=== PATIENT | female | born 1950 | race Caucasian/White ===

== ENCOUNTER 2018-07-24 08:04 | Emergency (ER) | payer OTHER ==
[~2018-07-24] VITALS: Ht 147.3 cm; Wt 64.4 kg
[2018-07-24 08:08] VITALS: BP 136/101; Ht 147.3 cm; Wt 64.4 kg
== END 2018-07-24 09:15 | disposition home or self-care (01) ==
LOC: ED 08:04
DX: J20.9 Acute bronchitis, unspecified (principal); I10 Essential (primary) hypertension; E11.9 Type 2 diabetes mellitus without complications; M79.7 Fibromyalgia